=== PATIENT | male | born 1950 | race Caucasian/White ===

== ENCOUNTER 2024-05-26 18:06 | Emergency (ER) | payer MEDICARE, SELFPAY | END 2024-05-26 18:55 | disposition home or self-care (01) | LOC: NAV ERS 18:06 | DX: S90.32XA Contusion of left foot, initial encounter (principal); I10 Essential (primary) hypertension; E11.9 Type 2 diabetes mellitus without complications; Z55.6 Problems related to health literacy; W20.8XXA Other cause of strike by thrown, projected or falling object, initial encounter | CPT/HCPCS: 99283 ==

== ENCOUNTER 2024-06-23 15:36 | Emergency (ER) | payer MEDICARE, OTHER | END 2024-06-23 17:35 | disposition home or self-care (01) | LOC: NAV ERS 15:36 | DX: S92.242A Displaced fracture of medial cuneiform of left foot, initial encounter for closed fracture (principal); E11.9 Type 2 diabetes mellitus without complications; I10 Essential (primary) hypertension; Z79.82 Long term (current) use of aspirin; Z79.899 Other long term (current) drug therapy; W20.8XXA Other cause of strike by thrown, projected or falling object, initial encounter | CPT/HCPCS: 99283 ==